=== PATIENT | male | born 1985 | race African-American/Black ===

== ENCOUNTER 2018-07-15 03:21 | Emergency (ER) | payer SELFPAY ==
[2018-07-15 03:28] VITALS: BP 144/78
--- NOTE | 2018-07-15 04:06 | RADIOLOGY REPORT (SQ) ---
CLINICAL DATA: fall head trauma TECHNICAL DATA: Multiple axial CT images of the brain were performed followed by sagittal and coronal reconstructed images. The CT study is performed according to ALARA (as low as reasonably achievable) or ALARA/IMAGE GENTLY, with automatic adjustment of mA and/or kV according to patient size. Comparisons: 32-year-old male status post fall with head trauma. FINDINGS: There is no evidence of mass, acute mass effect or midline shift. There are no acute extra-axial fluid collections. There is no evidence of acute intracranial hemorrhage. The cerebral sulci and ventricles are normal in size and configuration. There are no focal abnormal areas of increased or decreased attenuation. . There is moderate lobulated mucosal thickening of the maxillary sinuses. The mastoid air cells are clear. The orbital contents are grossly unremarkable. No acute osseous abnormalities are identified. No focal soft tissue abnormalities are identified. IMPRESSION: 1. There is no evidence of acute intracranial pathology. 2. Moderate lobulated mucosal thickening of the maxillary sinuses.
--- NOTE | 2018-07-15 04:15 | RADIOLOGY REPORT (SQ) ---
CLINICAL DATA: 32-year-old male status post fall from bed, hit left side of face on nightstand. TECHNICAL DATA: Axial CT of the facial bones was performed without intravenous contrast with sagittal and coronal reformatted images. The CT study is performed according to ALARA (as low as reasonably achievable) or ALARA/IMAGE GENTLY, with automatic adjustment of mA and/or kV according to patient size. Comparison: None. FINDINGS: There is no evidence of acute facial bone fracture. The mandible is intact. The temporomandibular joints are preserved. Both globes are intact and are symmetric. The extraocular muscles and optic nerves are symmetric. The intraconal fat is preserved. There is no evidence of intraorbital emphysema. There is mild left periorbital soft tissue swelling. There is lobulated mucosal thickening of the maxillary sinuses likely due to mucus retention cysts. There is trace mucosal thickening of the ethmoid and sphenoid sinuses. The nasal bones are intact. The bony nasal septum is essentially midline. The anterior maxillary spine is intact. Mastoid air cells and middle ear cavities are clear. There is no significant soft tissue swelling identified. IMPRESSION: 1. No evidence of acute facial bone pathology. 2. Mild left periorbital soft tissue swelling. 3. Mucous retention cyst within the maxillary sinuses bilaterally and trace mucosal thickening of the ethmoid and sphenoid sinuses.
[2018-07-15] MEDS ORDERED: LIDOCAINE 4%/TETRACAINE 0.5%/EPI 0.18% 5 ML TOPICAL SOLN TOP ONE (04:44)
--- NOTE | 2018-07-15 06:17 | ER Document Report ---
ED Head/Face/Scalp Injury - General Chief Complaint: Head Injury Stated Complaint: HEAD INJURY Time Seen by Provider: 07/15/18 03:33 Mode of Arrival: Ambulatory Information source: Patient Notes: Patient is a 32-year-old male comes emergency room complaining of facial trauma. Patient states he fell asleep on the bed and he rolled out striking the left side of his face on a nightstand on the way to the floor. Patient states his bed is approximately 4 feet off the floor. He had no loss of consciousness there was reported and complains of a laceration to the left cheek or zygomatic area. He is complaining of pain surrounding the lower portion of the eye. And is difficult to open his mouth without discomfort. Again he denies any loss of consciousness. Patient also denies any past medical history although he does not smoke. He states his tetanus shot is up-to -date. TRAVEL OUTSIDE OF THE [place] IN LAST 30 DAYS: No - HPI Patient complains to provider of: Injury, Laceration, Pain Injury to: Cheek, Face Location of problem: Cheek Occurred: Just prior to arrival Where: Home Timing: Better Context: Direct blow Loss consciousness: No loss of consciousness Remembers: Injury Past Medical History - General Information source: Patient - Social History Smoking Status: Never Smoker Cigarette use (# per day): No Chew tobacco use (# tins/day): No Smoking Education Provided: No Frequency of alcohol use: Occasional Drug Abuse: None Lives with: Family Family History: Reviewed & Not Pertinent Patient has suicidal ideation: No Patient has homicidal ideation: No Pulmonary Medical History: Reports: Hx Asthma Renal/ Medical History: Denies: Hx Peritoneal Dialysis Review of Systems - Review of Systems Constitutional: No symptoms reported EENT: See HPI Cardiovascular: No symptoms reported Respiratory: No symptoms reported Gastrointestinal: No symptoms reported Genitourinary: No symptoms reported Male Genitourinary: No symptoms reported Musculoskeletal: No symptoms reported Skin: Other - Laceration Hematologic/Lymphatic: No symptoms reported Neurological/Psychological: No symptoms reported -: Yes All other systems reviewed and negative Physical Exam - Vital signs Vitals: Temp Pulse Resp BP Pulse Ox 98.7 F 112 H 16 144/78 H 94 07/15/18 03:27 07/15/18 03:27 07/15/18 03:27 07/15/18 03:27 07/15/18 03:27 Interpretation: Hypertensive, Tachycardic - Notes Notes: Patient is a well-nourished well-developed 32-year-old male who is in no apparent distress. On physical exam he does appear slightly uncomfortable secondary to the facial discomfort. - General General appearance: Alert - HEENT Head: Normocephalic, Tenderness, Other - Patient is facial examination shows that he has a small 1 cm laceration at the corner of his cheek right at the zygomatic process. It is linear non-gaping and does not appear to be very deep.. No: Atraumatic Eyes: Normal Conjunctiva: Normal Ears: Normal Tympanic membrane: Normal Sinus: Normal Nasal: Normal. No: Bloody discharge, Amparo deformity, Ecchymosis Mouth/Lips: No: Normal, Angioedema, Caries, Dental fracture Mucous membranes: Moist Pharynx: Normal Neck: Normal - Respiratory Respiratory status: No respiratory distress Chest status: Nontender Breath sounds: Normal. No: Rales, Rhonchi, Stridor, Wheezing Chest palpation: Normal - Cardiovascular Rhythm: Tachycardia Murmur: No - Abdominal Inspection: Normal Distension: Other Bowel sounds: Normal Tenderness: Nontender Organomegaly: No organomegaly - Neurological Neuro grossly intact: Yes Cognition: Normal Orientation: AAOx4 Izzy Coma Scale Eye Opening: Spontaneous Izzy Coma Scale Verbal: Oriented Hagaman Coma Scale Motor: Obeys Commands Izzy Coma Scale Total: 15 Speech: Normal Course - Re-evaluation Re-evalutation: 07/15/18 06:[address] of head and patient showed no acute fractures. There is soft tissue swelling around the area of the left zygomatic process. 07/15/18 06:22 Patient's small laceration was cleaned up with Hibiclens then we applied let to the area for approximately 30minutes this stopped the bleeding and I applied a thin layer of Dermabond. This was at patient's request it was a good idea since then. Scarring from forming much better than suturing. She tolerated this very well. As stated it was approximately a 1 cm laceration that was linear in nature - Vital Signs Vital signs: Temp Pulse Resp BP Pulse Ox 98.7 F 112 H 16 144/78 H 94 07/15/18 03:27 07/15/18 03:27 07/15/18 03:27 07/15/18 03:27 07/15/18 03:27 Discharge - Discharge Clinical Impression: Facial laceration Qualifiers: Encounter type: initial encounter Qualified Code(s): S01.81XA - Laceration without foreign body of other part of head, initial encounter Contusion of face Qualifiers: Encounter type: initial encounter Qualified Code(s): S00.83XA - Contusion of other part of head, initial encounter Concussion Qualifiers: Encounter type: initial encounter Loss of consciousness presence/duration: without LOC Qualified Code(s): S06.0X0A - Concussion without loss of consciousness, initial encounter Condition: Stable Disposition: HOME, SELF-CARE Instructions: Antibiotic Ointment Protection ([facility]), Laceration Care ([facility]), Family Physicians / Practices Additional Instructions: With the use of the Dermabond which is the glue activity is normal tolerated. You can shower. Just do not pick at the area or try to pull out the glue it will fall off on its own as it heals and the glue dries up. Generally concerns or problems return to ER for recheck. Prescriptions: Cephalexin Monohydrate [Keflex 500 mg Capsule] 500 mg PO Q6H 7 Days #28 capsule Forms: Elevated Blood Pressure, Return to Work
== END 2018-07-15 06:44 | disposition home or self-care (01) ==
LOC: ER 03:21
DX: S01.81XA Laceration without foreign body of other part of head, initial encounter (principal); S06.0X0A Concussion without loss of consciousness, initial encounter; W06.XXXA Fall from bed, initial encounter; Y92.003 Bedroom of unspecified non-institutional (private) residence as the place of occurrence of the external cause
CPT/HCPCS: 99284; 70450; 70486; J3490

== ENCOUNTER 2018-12-09 12:48 | Emergency (ER) | payer OTHER ==
[2018-12-09] MEDS ORDERED: DIPH/PERTUSS(ACELL)/TETANUS VAC/PF 0.5 ML SYR (>=10YO) IM ONE (14:24)
--- NOTE | 2018-12-09 14:25 | ER Document Report ---
ED Medical Screen (RME) - General Chief Complaint: Puncture Wound Stated Complaint: LEG INJURY Mode of Arrival: Ambulatory Information source: Patient Notes: Patient presents to the emergency department with complaints of laceration to the right lower leg. Reports cut himself on a nail that was in a board. Is not sure if his tetanus is up-to-date. No active bleeding I have greeted and performed a rapid initial assessment of this patient. A comprehensive ED assessment and evaluation of the patient, analysis of test results and completion of the medical decision making process will be conducted by additional ED providers. TRAVEL OUTSIDE OF THE [place] IN LAST 30 DAYS: No - Related Data Allergies/Adverse Reactions: No Known Allergies Allergy (Unverified 12/09/18 13:21) Past Medical History Pulmonary Medical History: Reports: Hx Asthma Renal/ Medical History: Denies: Hx Peritoneal Dialysis Physical Exam - Vital signs Vitals: Temp Pulse Resp BP Pulse Ox 98.7 F 80 16 108/68 99 12/09/18 13:29 12/09/18 13:29 12/09/18 13:29 12/09/18 13:29 12/09/18 13:29 Course - Vital Signs Vital signs: Temp Pulse Resp BP Pulse Ox 98.7 F 80 16 108/68 99 12/09/18 13:29 12/09/18 13:29 12/09/18 13:29 12/09/18 13:29 12/09/18 13:29
[2018-12-09] MEDS ORDERED: LIDOCAINE 1% INJ-PF (10 MG/ML) 30 ML SDV INJ ONE (14:50)
--- NOTE | 2018-12-09 14:56 | ER Document Report ---
HPI - HPI Time Seen by Provider: 12/09/18 14:34 Pain Level: 4 Notes: Patient is a 33-year-old male with no significant past medical history who presents to the emergency department complaining of a laceration/puncture to his right lower anterior leg prior to arrival. Patient states that he hit his leg off of a board that had a nail sticking out. Patient states that the nail was bent, but fully intact. He has been able to ambulate without any difficulties. He is unsure of his last tetanus. Denies drug allergies. No IV drug use history or MRSA history. Denies any headache, fever, neck pain, URI, sore throat, chest pain, palpitations, syncope, cough, shortness of breath, wheeze, dyspnea, abdominal pain, nausea/vomiting/diarrhea, urinary retention, dysuria, hematuria, loss of control of bowel or bladder, numbness/tingling, muscle paralysis/weakness, or rash. - ROS Systems Reviewed and Negative: Yes All other systems reviewed and negative - MUSCULOSKELETAL Musculoskeletal: REPORTS: Extremity pain - LLE Past Medical History - General Information source: Patient - Social History Smoking Status: Current Every Day Smoker Frequency of alcohol use: Occasional Drug Abuse: None Family History: Reviewed & Not Pertinent Patient has suicidal ideation: No Patient has homicidal ideation: No Pulmonary Medical History: Reports: Hx Asthma Renal/ Medical History: Denies: Hx Peritoneal Dialysis Vertical Provider Document - CONSTITUTIONAL Agree With Documented VS: Yes Notes: PHYSICAL EXAMINATION: GENERAL: Well-appearing, well-nourished and in no acute distress. LUNGS: Breath sounds clear to auscultation bilaterally and equal. No wheezes rales or rhonchi. HEART: Regular rate and rhythm without murmurs, rubs, gallops. Musculoskeletal: Rt lower leg: FROM to passive/active. Strength 5+/5. N/V intact distal. No bony tenderness. No foot drop. Compartments are soft. Extremities: No cyanosis, clubbing, or edema b/l. Peripheral pulses 2+. Capillary refill less than 3 seconds. NEUROLOGICAL: Normal speech, normal gait. Normal sensory, motor exams PSYCH: Normal mood, normal affect. SKIN: Rt lower leg anterolateral: there is a 2.8mur3yn laceration noted w/o any active bleeding. It does appear superficial. He then has a scratch distally that is very superficial without any warrant for suture repair. - INFECTION CONTROL TRAVEL OUTSIDE OF THE [place] IN LAST 30 DAYS: No Course - Re-evaluation Re-evalutation: 12/09/18 Patient is an afebrile, well-hydrated, 33-year-old male who presents the emergency department with a puncture laceration to his right anterior lateral lower leg. Vitals are acceptable without significant tachycardia, tachypnea, or hypoxia. PE is otherwise unremarkable for any neurovascular compromise, obvious tendon/leg rupture, obvious fracture/dislocation, cellulitis, compartment syndrome. Wound was thoroughly irrigated and cleansed. Tetanus was updated today. Wound edges were loosely approximated appropriately due to the nature of it being primarily a puncture wound without any complications. Patient tolerated procedure well. Wound dressing was placed and wound instructions reviewed. No further labs or imaging warranted at this time. There is no evidence of foreign body. I will send him home and was written for Keflex. Recheck with your PCM in 2-3 days. Consider consult with orthopedics. Return to the ED with any other worsening/concerning symptoms as reviewed. Sutures will need removed in 10 days. Patient is in agreement. - Vital Signs Vital signs: Temp Pulse Resp BP Pulse Ox 98.7 F 80 16 108/68 99 12/09/18 13:29 12/09/18 13:29 12/09/18 13:29 12/09/18 13:29 12/09/18 13:29 Procedures - Laceration/Wound Repair Right Lower Leg Time completed: 15:35 Wound length (cm): 2.5 - 2.5x1cm Wound's Depth, Shape: Superficial, Linear Laceration pre-procedure: Sterile PPE donned, Sterile drapes applied, Other - chlorhexadine/saline Anesthetic type: 1% Lidocaine Volume Anesthetic (mLs): 6 Wound explored: Clean, No foreign body removed Irrigated w/ Saline (mLs): 120 Wound Debrided: none Wound Repaired With: Sutures Suture Size/Type: 4:0, Nylon Number of Sutures: 3 Layer Closure?: No Post-procedure wound care: Sterile dressing applied Post-procedure NV exam normal: Yes Complications: No Discharge - Discharge Clinical Impression: Leg laceration Qualifiers: Encounter type: initial encounter Laterality: right Qualified Code(s): S81.811A - Laceration without foreign body, right lower leg, initial encounter Condition: Stable Disposition: HOME, SELF-CARE Instructions: Antibiotic Ointment Protection ([facility]), Laceration Care ([facility]), Prophylactic Antibiotic ([facility]), Soap Cleansing ([facility]), Tetanus Immunization Given ([facility]) Additional Instructions: Do not shower or bathe for 24 hours. After 24 hours you may shower but no submersion of the wound under water. Keep the original dressing on the wound for 24 hours unless the drainage soaks through. Change the dressing daily thereafter and keep the knots of the suture material clean from any dried discharge. You may leave the wound open to the air once there is no more discharge. Return to the ED and/or your PCM in 2-3 days for a recheck. Monitor for any signs of worsening pain or redness, purulent drainage, streaks, and/or fever. Return to the ED if noticing any of the above symptoms or as needed. Take medications as directed. Your sutures will need to be removed in 10 days. Prescriptions: Cephalexin Monohydrate [Keflex 500 mg Capsule] 500 mg PO TID #30 capsule Forms: Smoking Cessation Education, Return to Work Referrals: [facility] [Provider Group] - Follow up as needed
[2018-12-09] MEDS ORDERED: OXYCODONE HCL IR 5 MG TABLET PO ONE (15:07)
[2018-12-09 15:51] VITALS: BP 137/70
== END 2018-12-09 15:51 | disposition home or self-care (01) ==
LOC: ER 12:48
DX: S81.811A Laceration without foreign body, right lower leg, initial encounter (principal); W45.0XXA Nail entering through skin, initial encounter; W22.8XXA Striking against or struck by other objects, initial encounter; Y99.0 Civilian activity done for income or pay; F17.200 Nicotine dependence, unspecified, uncomplicated; Z23 Encounter for immunization
CPT/HCPCS: 90471; 90715; 99283

== ENCOUNTER 2018-12-11 12:05 | Emergency (ER) | payer OTHER ==
[2018-12-11] MEDS ORDERED: OXYCODONE-ACETAMINOPHEN 5-325 MG TABLET PO ONE (14:11)
--- NOTE | 2018-12-11 14:15 | ER Document Report ---
ED Extremity Problem, Lower - General Chief Complaint: Leg Pain Stated Complaint: LEG PAIN Time Seen by Provider: 12/11/18 14:06 Mode of Arrival: Ambulatory Information source: Patient Notes: Patient is a 33-year-old male who presents with chief complaint of redness and swelling to his left lower extremity. 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 He states he came here to [place] and had 3 sutures placed. He states he was placed on Keflex. He states that over the last 24 hours the pain has been increasing, one of the sutures opened up and he has redness. Patient also reports pain goes up into his thigh. Patient reports his tetanus shot was updated on , past medical history includes asthma. Patient reports taking his antibiotics every 6 hours as prescribed. TRAVEL OUTSIDE OF THE [place] IN LAST 30 DAYS: No - Related Data Allergies/Adverse Reactions: No Known Allergies Allergy (Verified 12/11/18 12:05) Past Medical History - General Information source: Patient - Social History Smoking Status: Never Smoker Frequency of alcohol use: None Drug Abuse: None Family History: Reviewed & Not Pertinent Patient has suicidal ideation: No Patient has homicidal ideation: No Pulmonary Medical History: Reports: Hx Asthma Renal/ Medical History: Denies: Hx Peritoneal Dialysis Surgical Hx: Negative - Immunizations Hx Diphtheria, Pertussis, Tetanus Vaccination: Yes Review of Systems - Review of Systems Constitutional: No symptoms reported EENT: No symptoms reported Cardiovascular: No symptoms reported Respiratory: No symptoms reported Gastrointestinal: No symptoms reported Genitourinary: No symptoms reported Male Genitourinary: No symptoms reported Musculoskeletal: No symptoms reported Skin: See HPI Hematologic/Lymphatic: No symptoms reported Neurological/Psychological: No symptoms reported Physical Exam - Vital signs Vitals: Temp Pulse Resp BP Pulse Ox 98.6 F 89 18 133/80 H 99 12/11/18 12:10 12/11/18 12:10 12/11/18 12:10 12/11/18 12:10 12/11/18 12:10 - Notes Notes: PHYSICAL EXAMINATION: GENERAL: Well-appearing, well-nourished and in no acute distress. HEAD: Atraumatic, normocephalic. EYES: Pupils equal round extraocular movements intact, conjunctiva are normal. ENT: Nares patent NECK: Normal range of motion LUNGS: No respiratory distress Musculoskeletal: Normal range of motion NEUROLOGICAL: Normal speech, normal gait. PSYCH: Normal mood, normal affect. SKIN: 3 cm laceration to left lower extremity, appears to be healing well, mild erythema without exudates or fluctuance. 2 of 3 sutures remain intact. Course - Re-evaluation Re-evalutation: X-ray shows no indication of retained foreign body or other acute findings. Physical examination is reassuring. There is slight erythema around the wound area but no fluctuance or induration and no heat or red streaking. The wound was loosely approximated by the provider who sutured it. One suture has fallen out. The other 2 sutures are intact. The patient continues to take Keflex. - Vital Signs Vital signs: Temp Pulse Resp BP Pulse Ox 97.7 F 80 16 131/74 H 98 12/11/18 15:46 12/11/18 15:46 12/11/18 15:46 12/11/18 15:46 12/11/18 15:46 Discharge - Discharge Clinical Impression: Encounter for re-check of laceration wound Leg pain Qualifiers: Laterality: left Qualified Code(s): M79.605 - Pain in left leg Condition: Stable Disposition: HOME, SELF-CARE Additional Instructions: Your x-ray today was normal. There is no evidence of any retained foreign body in the wound. There is no indication that there is an abscess behind the wound based upon my assessment. Please continue taking the antibiotic that was prescribed to you by the previous provider. Please take ibuprofen 600 mg every 6 hours for pain. Use the Percocet for severe pain only. You may also use the antinausea medication if the Percocet makes you have nausea. As discussed please continue to do dressing changes 3 times daily using a clean sterile dressing and Neosporin ointment. Please return to the emergency department a fever, worsening pain, red streaking from the area or if you develop or foul- smelling drainage from the area. Prescriptions: Oxycodone HCl/Acetaminophen [Percocet 5-325 mg Tablet] 1 tab PO Q4H PRN #12 tablet PRN Reason: Promethazine HCl [Phenergan 25 mg Tablet] 1 - 2 tab PO Q6H PRN #15 tablet PRN Reason:
--- NOTE | 2018-12-11 14:49 | RADIOLOGY REPORT (SQ) ---
EXAM DESCRIPTION: TIBIA FIBULA LEFT COMPLETED DATE/TIME: 12/11/2018 2:25 pm REASON FOR STUDY: laceration, eval for retained FB/fluid collection COMPARISON: None. NUMBER OF VIEWS: Two views. TECHNIQUE: Two radiographic images acquired of the left tibia and fibula to include the knee and ank le in at least one projection. LIMITATIONS: None. FINDINGS: MINERALIZATION: Normal. BONES: No acute fracture or dislocation. No worrisome bone lesions. SOFT TISSUES: No obvious swelling or foreign body. OTHER: No other significant finding. IMPRESSION: No evidence of acute osseous injury or retained radiopaque foreign body. TECHNICAL DOCUMENTATION: JOB ID: [id number] [employer]- All Rights Reserved Reading location - IP/workstation name: [email or web address]
[2018-12-11] MEDS ORDERED: ONDANSETRON ODT 4 MG TAB (6 TAB/ER DISP) PO PRN (15:31)
[2018-12-11] MEDS ORDERED: ONDANSETRON 4 MG TAB.RAPDIS PO ONE (15:31)
[2018-12-11 15:49] VITALS: BP 131/74
== END 2018-12-11 15:56 | disposition home or self-care (01) ==
LOC: ER 12:05
DX: S81.812A Laceration without foreign body, left lower leg, initial encounter (principal); W45.0XXA Nail entering through skin, initial encounter; Y93.89 Activity, other specified; J45.909 Unspecified asthma, uncomplicated
CPT/HCPCS: 99283; 73590; S0119